=== PATIENT | male | born 1995 | race Caucasian/White ===

== ENCOUNTER 2020-10-29 08:47 | Emergency (ER) | payer OTHER ==
[2020-10-29] MEDS ORDERED: Aspirin 81 MG Tab.Chew PO ONE (09:14)
[2020-10-29] MEDS ORDERED: Ketorolac 60 MG/2 ML SDV IM ONE (09:15)
--- NOTE | 2020-10-29 09:18 | EDM.PDOC ---
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 He denies any heavy lifting lifting or trauma. He states he does get sweaty at times when the pain is present it is very tender around his pacemaker area no shortness of breath no nausea Left Chest Pain Score (Numeric/FACES): 5 - Related Data Allergies Allergy/AdvReac Type Severity Reaction Status Date / Time No Known Allergies Allergy Verified 10/29/20 09:00 Home Meds: Home Meds DULoxetine [Cymbalta] 20 mg PO DAILY 10/29/20 [History] Metoprolol Succinate 50 mg PO DAILY 10/29/20 [History] buPROPion [Wellbutrin SR] 150 mg PO DAILY 10/29/20 [History] Past Medical History Cardiovascular History: Reports: Pacemaker (Bradycardia syndrome with syncope) Social & Family History - Tobacco Use Tobacco Use Status *Q: Heavy Tobacco User Years of Tobacco use: 10 Packs/Tins Daily: 0.5 - Caffeine Use Caffeine Use: Reports: Coffee - Recreational Drug Use Recreational Drug Use: No ED ROS GENERAL - Review of Systems Review Of Systems: See Below Constitutional: Reports: Diaphoresis Respiratory: Reports: No Symptoms Cardiovascular: Reports: Chest Pain GI/Abdominal: Reports: No Symptoms ED EXAM, GENERAL - Physical Exam Exam: See Below Exam Limited By: No Limitations General Appearance: Alert, WD/WN, No Apparent Distress Respiratory/Chest: No Respiratory Distress, Lungs Clear, Normal Breath Sounds, N o Accessory Muscle Use, Other (Tender to palpation over the pacemaker implantation site more medial) Cardiovascular: Regular Rate, Rhythm, No Murmur GI/Abdominal: Soft, Non-Tender #1 Interpretation EKG Date: 10/29/20 Time: 09:35 Rhythm: NSR [place]: Normal P-Wave: Present QRS: Normal ST-T: Normal QT: Normal Comparison: NA - No Prior EKG Course - Vital Signs Last Recorded V/S: Last Vital Signs Temp 97.5 F 10/29/20 08:57 Pulse 77 10/29/20 08:57 Resp 16 10/29/20 10:24 BP 121/73 10/29/20 10:24 Pulse Ox 98 10/29/20 10:24 - Orders/Labs/Meds Orders: Active Orders 24 hr Category Date Time Status Cardiac Monitoring [RC] .As Directed Care 10/29/20 09:14 Active EKG Documentation Completion [RC] ASDIRECTED Care 10/29/20 09:15 Active EKG 12 Lead [EK] Stat Ther 10/29/20 09:15 Ordered Labs: Laboratory Tests 10/29/20 10/29/20 10/29/20 Range/Units 09:31 09:31 09:31 WBC 4.8 (4.5-11.0) K/uL RBC 4.87 (4.30-5.90) M/uL Hgb 14.8 (12.0-15.0) g/dL Hct 42.3 (40.0-54.0) % MCV 87 (80-98) fL MCH 30 (27-31) pg MCHC 35 (32-36) % Plt Count 253 (150-400) K/uL Add Manual Diff Yes Neutrophils % (Manual) 50 (36-66) % Lymphocytes % (Manual) 41 (24-44) % Monocytes % (Manual) 6 (2-6) % Eosinophils % (Manual) 3 (2-4) % Basophils % (Manual) 0 (0-1) % D-Dimer, Quantitative 162.97 (0.0-500.0) ng/mL Sodium 141 (140-148) mmol/L Potassium 4.2 (3.6-5.2) mmol/L Chloride 102 (100-108) mmol/L Carbon Dioxide 28 (21-32) mmol/L Anion Gap 11.3 (5.0-14.0) mmol/L BUN 20 H (7-18) mg/dL Creatinine 1.1 (0.8-1.3) mg/dL Est Cr Clr Drug Dosing 110.72 mL/min Estimated GFR (MDRD) > 60 (>60) Glucose 94 (74-106) mg/dL Calcium 9.2 (8.5-10.1) mg/dL Troponin I < 0.017 (0.000-0.056) ng/mL Meds: Medications Discontinued Medications Generic Name Dose Route Start Last Admin Trade Name Reggie PRN Reason Stop Dose Admin Aspirin 324 mg 10/29/20 09:14 10/29/20 09:22 Aspirin 81 Mg Tab.Chew PO 10/29/20 09:15 324 mg ONETIME ONE Administration Ketorolac Tromethamine 60 mg 10/29/20 09:15 10/29/20 09:22 Ketorolac 60 Mg/2 Ml Sdv IM 10/29/20 09:16 60 mg ONETIME ONE Administration Departure - Departure Time of Disposition: 10:50 Disposition: Home, Self-Care 01 Condition: Fair Clinical Impression: Atypical chest pain Instructions: Nonspecific Chest Pain, Adult Referrals: PCP,None [Primary Care Provider] - Forms: ED Department Discharge Additional Instructions: Try Tylenol or ibuprofen as needed for chest wall pain, please followup with your primary care provider in 3-5 days if not better, please call return to the emergency department with worsening of symptoms. Sepsis Event Note (ED) - Evaluation Sepsis Screening Result: No Definite Risk - Focused Exam Vital Signs: Vital Signs Temp Pulse Resp BP Pulse Ox 10/29/20 10:24 16 121/73 98 10/29/20 09:26 14 122/79 98 10/29/20 08:57 97.5 F 77 18 128/83 99 - My Orders Last 24 Hours: My Active Orders 10/29/20 09:14 Cardiac Monitoring [RC] .As Directed 10/29/20 09:15 EKG Documentation Completion [RC] ASDIRECTED EKG 12 Lead [EK] Stat - Assessment/Plan Last 24 Hours: My Active Orders 10/29/20 09:14 Cardiac Monitoring [RC] .As Directed 10/29/20 09:15 EKG Documentation Completion [RC] ASDIRECTED EKG 12 Lead [EK] Stat Plan: Assessment Acuity = acute Site and laterality = atypical chest pain Etiology = suspicious for muscle skeletal problem Manifestations = none Location of injury = Home Lab values = CBC, BMP, troponin, D-dimer all within normal limits EKG demonstrates normal sinus rhythm, chest x-ray shows no acute process Plan He had good relief with the Toradol provided, and follow-up with primary care in the next 3 to 5 days for reevaluation if no improvement This note was dictated using dragon voice recognition software please call with any questions on syntax or grammar.
--- NOTE | 2020-10-29 10:20 | CRLCR ---
For Patients: As a result of the Cures Act, medical imaging exams and procedure reports are released immediately into your electronic medical record. You may view this report before your referring provider. If you have questions, please contact your health care provider. Indication: Chest pain Technique: Chest 2 views Comparison: None Findings: Cardiomediastinal silhouette is unremarkable. No focal lung consolidation, pleural effusion or pneumothorax. Left chest wall pacemaker leads projecting over the right atrium and right ventricle. Loop recorder device in the anterior chest wall. Impression: No acute cardiopulmonary abnormality. Dictated by Titus Kimbrough MD @ 10/29/2020 10:19:[address] Titus Kimbrough @ Oct 29 2020 10:19AM
== END 2020-10-29 11:17 | disposition home or self-care (01) ==
LOC: JP.ED 08:47
DX: R07.89 Other chest pain (principal); Z72.0 Tobacco use; Z79.899 Other long term (current) drug therapy
CPT/HCPCS: 36415; 71046; 80048; 84484; 85025; 85379; 93005; 96372; 99285; A9270; J1885

== ENCOUNTER 2023-08-11 10:30 | Observation (INO) | payer OTHER ==
[2023-08-11 11:34] LABS: CORONAVIRUS COVID-19 NAA NEGATIVE (NEGATIVE); INFLUENZA A NAA NEGATIVE (NEGATIVE); INFLUENZA B NAA NEGATIVE (NEGATIVE); RESPIRATORY SYNCYTIAL VIR NAA NEGATIVE (NEGATIVE)
[2023-08-11 11:35] LABS: BASOPHILS ABSOLUTE AUTO 0.06 K/uL (0.00-0.10); BASOPHILS PERCENT AUTO 0.7 % (0.1-1.3); EOSINOPHILS ABSOLUTE AUTO 0.14 K/uL (0.00-0.40); EOSINOPHILS PERCENT AUTO 1.6 % (0.0-5.4); HEMATOCRIT 44.8 % (38.4-49.7); HEMOGLOBIN 16.1 g/dL (12.9-16.9); IMMATURE GRAN ABSOLUTE AUTO 0.02 K/uL (0.00-0.23); IMMATURE GRAN PERCENT AUTO 0.2 % (0.0-0.7); LYMPHOCYTES ABSOLUTE AUTO 1.83 K/uL (0.8-3.3); LYMPHOCYTES PERCENT AUTO 20.5 % (11.4-47.7); MEAN CORPUSCULAR HEMOGLOBIN 31.1 pg (31.6-35.5); MEAN CORPUSCULAR HGB CONC 35.9 g/dL (31.6-35.5); MEAN CORPUSCULAR VOLUME 86.5 fL (81.4-99.0); MONOCYTES ABSOLUTE AUTO 1.07 K/uL (0.20-0.90); NEUTROPHILS ABSOLUTE AUTO 5.81 K/uL (1.0-7.6); PLATELET COUNT,PLT 170 K/uL (130-375); RED BLOOD CELL COUNT 5.18 M/uL (4.14-5.76); WHITE BLOOD CELL COUNT,WBC 8.9 K/uL (3.2-11.0)
[2023-08-11 11:59] LABS: A/G RATIO 1.1 (1.2-2.2); ALANINE AMINOTRANSFERASE,ALT 76 U/L (12-78); ALBUMIN 4.1 g/dL (3.4-5.0); ALKALINE PHOSPHATASE 61 U/L (46-116); ANION GAP 10.8 mmol/L (5.0-14.0); ASPARTATE AMNIOTRANSFERASE,AST 49 U/L (15-37); BILIRUBIN TOTAL 0.6 mg/dL (0.2-1.0); BLOOD UREA NITROGEN,BUN 11 mg/dL (7-18); C-REACTIVE PROTEIN 5.17 mg/dL (<0.50); CALCIUM 9.2 mg/dL (8.5-10.1); CARBON DIOXIDE,CO2 28 mmol/L (21-32); CHLORIDE,CL 101 mmol/L (100-108); CREATININE 0.9 mg/dL (0.8-1.3); EST CRCL DRUG DOSING (CG) 131.73 mL/min; ESTIMATED GFR 118 mL/min (>60); GLUCOSE RANDOM 90 mg/dL (74-106); POTASSIUM,K 4.4 mmol/L (3.6-5.2); PROTEIN TOTAL,TP 7.9 g/dL (6.4-8.2); SODIUM,NA 140 mmol/L (140-148)
[2023-08-11] MEDS: Sodium Chloride 0.9% 80 ML IV SCH (12:41)
[2023-08-11] MEDS: Iopamidol 612 MG/ML 100 ML Bottle IV SCH (12:41)
[2023-08-11] MEDS: Sodium Chloride 0.9% 10 ML Syringe FLUSH ONE (12:41)
[2023-08-11] MEDS ORDERED: Ondansetron 4 MG Tab.DIS PO PRN (17:46)
[2023-08-11] MEDS ORDERED: Acetaminophen 325 MG Tab PO SCH (18:00)
[2023-08-11] MEDS: metroNIDAZOLE/Normal Saline 500 MG in Premix Bag 1 BAG IV SCH (18:15)
[2023-08-11] MEDS: Acetaminophen 500 MG Tab PO SCH (18:25)
[2023-08-11] MEDS: cefTRIAXone 2 GM in Sodium Chloride 0.9% 50 ML IV SCH (19:31)
[2023-08-11] MEDS ORDERED: oxyCODONE 5 MG Tab PO PRN (19:54)
[2023-08-11] MEDS ORDERED: Promethazine 25 MG Tab PO PRN (19:59)
[2023-08-11] MEDS: Melatonin 3 MG Tab PO SCH (22:12)
[2023-08-12 04:59] LABS: HEMATOCRIT 39.2 % (38.4-49.7); MEAN CORPUSCULAR HGB CONC 35.7 g/dL (31.6-35.5); MEAN CORPUSCULAR VOLUME 86.9 fL (81.4-99.0); RED BLOOD CELL COUNT 4.51 M/uL (4.14-5.76); WHITE BLOOD CELL COUNT,WBC 7.9 K/uL (3.2-11.0)
[2023-08-12 05:28] LABS: ALANINE AMINOTRANSFERASE,ALT 56 U/L (12-78); ALBUMIN 3.3 g/dL (3.4-5.0); ALKALINE PHOSPHATASE 51 U/L (46-116); ANION GAP 7.5 mmol/L (5.0-14.0); ASPARTATE AMNIOTRANSFERASE,AST 29 U/L (15-37); BILIRUBIN TOTAL 0.5 mg/dL (0.2-1.0); BLOOD UREA NITROGEN,BUN 12 mg/dL (7-18); C-REACTIVE PROTEIN 3.74 mg/dL (<0.50); CARBON DIOXIDE,CO2 29 mmol/L (21-32); CHLORIDE,CL 104 mmol/L (100-108); CREATININE 1.1 mg/dL (0.8-1.3); EST CRCL DRUG DOSING (CG) 107.78 mL/min; ESTIMATED GFR 93 mL/min (>60); GLUCOSE RANDOM 91 mg/dL (74-106); PHOSPHORUS 4.5 mg/dL (2.5-4.9); POTASSIUM,K 4.3 mmol/L (3.6-5.2); PROTEIN TOTAL,TP 6.7 g/dL (6.4-8.2); SODIUM,NA 140 mmol/L (140-148)
== END 2023-08-12 19:06 | disposition home or self-care (01) ==
LOC: JP.ED 10:30 → JP.MS 17:28
PROVIDERS: ADMIT Student in an Organized Health Care Education/Training Program; ATTEND Student in an Organized Health Care Education/Training Program
DX: K52.9 Noninfective gastroenteritis and colitis, unspecified (principal); R10.9 Unspecified abdominal pain; Z95.0 Presence of cardiac pacemaker; Z79.899 Other long term (current) drug therapy; Z87.891 Personal history of nicotine dependence
CPT/HCPCS: 0241U; 36415; 74177; 80053; 83735; 84100; 85025; 85027; 86140; 87046; 87077; 87177; 87186; 87209; 87493; 87899; 89055; 99284; 99285; A9270; J0696; J1836; J3490; Q9967; 96365; 96366; 96367; 99231; 99238; G0378